=== PATIENT | male | born 1990 | race Caucasian/White ===

== ENCOUNTER 2021-02-22 19:04 | Inpatient (IN) | payer MEDICAID, OTHER ==
[~2021-02-22] VITALS: Ht 177.8 cm; Wt 88.0 kg
[2021-02-22] MEDS ORDERED: IBUPROFEN 600MG TABLET PO STA (20:03)
[2021-02-22] MEDS ORDERED: SODIUM CHLORIDE 0.9% 1,000 ML IV ONE (20:15)
[2021-02-22 20:32] LABS: CHLORIDE 107 mEq/L (98-107)
[2021-02-22 20:34] LABS: BASOPHILS % 0.9 % (0.0-2.0); EOSINOPHILS % 3.7 % (0.0-5.0); HEMATOCRIT. 38.8 % (42.0-52.0); HEMOGLOBIN. 13.1 g/dL (14.0-18.0); LYMPHOCYTES % 14.5 % (20.0-50.0); MEAN CORPUSCULAR HEMOGLOBIN 27.7 pg (28.0-32.0); MEAN CORPUSCULAR VOLUME 82.1 fL (80.0-94.0); MEAN PLATELET VOLUME 8.5 fl (7.4-10.4); MONOCYTES % 6.9 % (2.0-8.0); PLATELET 172 x1000/uL (130-400); RED BLOOD CELL COUNT 4.73 mill/uL (4.7-6.1); RED CELL DISTRIBUTION WIDTH 13.8 % (11.6-14.6)
[2021-02-22] MEDS ORDERED: IOHEXOL-300 100 ML BOTTLE ONE (23:22)
[2021-02-23] MEDS ORDERED: AZITHROMYCIN 500MG/250ML 250 ML IV ONE (00:15)
[2021-02-23] MEDS ORDERED: CEFTRIAXONE 1 G PREMIX 50 ML IV ONE (00:15)
[2021-02-23 20:23] VITALS: BP 120/69
[2021-02-23] MEDS ORDERED: ACETAMINOPHEN 325MG TABLET PO PRN (21:30)
[2021-02-23 22:00] VITALS: BP 120/69
[2021-02-23] MEDS ORDERED: CEFTRIAXONE 1,000 MG in DEXTROSE 5% WATER 50 ML IV SCH (22:00)
[2021-02-23] MEDS ORDERED: AZITHROMYCIN 500 MG in DEXT 5% WATER 250 ML IV SCH (23:00)
[2021-02-23 23:03] LABS: BASOPHILS % 0.8 % (0.0-2.0); EOSINOPHILS % 6.8 % (0.0-5.0); HEMATOCRIT. 39.1 % (42.0-52.0); HEMOGLOBIN. 13.4 g/dL (14.0-18.0); MEAN CORPUSCULAR VOLUME 81.7 fL (80.0-94.0); MONOCYTES % 8.7 % (2.0-8.0); NEUTROPHILS % 60.7 % (40.0-76.0); PLATELET 176 x1000/uL (130-400); RED BLOOD CELL COUNT 4.78 mill/uL (4.7-6.1); RED CELL DISTRIBUTION WIDTH 13.8 % (11.6-14.6)
[2021-02-23] MEDS: QUETIAPINE FUMARATE 50MG TABLET PO SCH (23:04)
[2021-02-23 23:09] LABS: CHLORIDE 105 mEq/L (98-107)
[2021-02-24] VITALS: BP 105/67
[2021-02-24] MEDS ORDERED: LORA-249 MT (01:34)
[2021-02-24] MEDS ORDERED: QUET100T MT (01:34)
[2021-02-24] MEDS ORDERED: BUPR1FIL7 SL (01:34)
[2021-02-24 04:00] VITALS: BP 107/58
[2021-02-24 08:00] VITALS: BP 101/62
[2021-02-24] MEDS: NICOTINE 21MG PATCH TD SCH (09:44)
[2021-02-24 12:00] VITALS: BP 123/65
[2021-02-24] MEDS ORDERED: ACETAMINOPHEN 325MG TABLET PO PRN (12:00)
[2021-02-24] MEDS ORDERED: ONDANSETRON HCL 4MG/2ML INJ IV PRN (12:00)
[2021-02-24] MEDS ORDERED: CLONIDINE 0.1MG TABLET PO PRN (12:00)
[2021-02-24] MEDS ORDERED: HYDROCODONE/ACETAMINOPHEN 5/325MG TABLET PO PRN (12:00)
[2021-02-24] MEDS ORDERED: MAGNESIUM/ALUMINUM HYDROXIDE/SIMETHICONE 30ML UDC PO PRN ×2 (12:00→18:45)
[2021-02-24] MEDS ORDERED: NALOXONE HCL 0.4MG/ML VIAL IV PRN (12:15)
[2021-02-24] MEDS: ENOXAPARIN 40MG/0.4ML SYR SUBCUT SCH (13:05)
[2021-02-24 14:25] LABS: CLARITY URINE CLEAR (CLEAR); COLOR URINE YELLOW (YELLOW); KETONES URINE NEGATIVE (NEGATIVE); LEUKOCYTE ESTERASE URINE NEGATIVE (NEGATIVE); NITRITE URINE NEGATIVE (NEGATIVE); OCCULT BLOOD URINE NEGATIVE (NEGATIVE); PH URINE 5.5 (4.5-8.0); PROTEIN URINE NEGATIVE (NEGATIVE); SPECIFIC GRAVITY URINE 1.022 (1.005-1.030); UROBILINOGEN URINE 0.2 E.U./dL (0.2-1.0)
[2021-02-24 14:57] LABS: *AMPHETAMINES SCREEN URINE PRESUMTIVE POSITIVE (NEGATIVE); *BARBITURATES SCREEN URINE NEGATIVE (NEGATIVE)
[2021-02-24 14:58] LABS: *BENZODIAZEPINES SCREEN URINE NEGATIVE (NEGATIVE); *COCAINE SCREEN URINE NEGATIVE (NEGATIVE); CANNABINOID URINE SCREEN NEGATIVE (NEGATIVE); METHADONE URINE SCREEN NEGATIVE (NEGATIVE); OPIATES URINE SCREEN NEGATIVE (NEGATIVE)
[2021-02-24 14:59] LABS: PHENCYCLIDINE URINE SCREEN NEGATIVE (NEGATIVE)
[2021-02-24 16:00] VITALS: BP 111/65
[2021-02-24] MEDS ORDERED: NICO-789 TP (18:44)
[2021-02-24] MEDS ORDERED: GUAIFENESIN-DM 200MG-20MG/10ML UDC PO PRN (18:45)
[2021-02-24] MEDS ORDERED: TRAZODONE HCL 50MG TABLET PO SCH (18:45)
[2021-02-24] MEDS ORDERED: DOCUSATE SODIUM 100MG CAPSULE PO PRN (18:45)
[2021-02-24] MEDS ORDERED: DIPHENHYDRAMINE 25MG CAPSULE PO PRN (18:45)
[2021-02-24] MEDS ORDERED: BACLOFEN 10MG TABLET PO PRN (18:45)
[2021-02-24] MEDS ORDERED: TUSSL MT (18:51)
[2021-02-24] MEDS ORDERED: DOCU-150 PO (18:51)
[2021-02-24] MEDS ORDERED: TRAZ-251 PO (18:51)
[2021-02-24] MEDS ORDERED: RISP1SOL4 PO (18:51)
[2021-02-24] MEDS ORDERED: MAG355OR21 MT (18:51)
[2021-02-24] MEDS ORDERED: DIPH25CA83 PO (18:51)
[2021-02-24] MEDS ORDERED: BACL-141 PO (18:51)
[2021-02-24] MEDS ORDERED: HYDR50SY PO (18:51)
[2021-02-24] MEDS ORDERED: TRAZODONE HCL 50MG TABLET PO PRN (19:15)
[2021-02-24] MEDS ORDERED: HYDROXYZINE 25MG TABLET PO PRN (19:15)
[2021-02-24 20:00] VITALS: BP 109/60
[2021-02-24] MEDS: CEFTRIAXONE 1,000 MG in DEXTROSE 5% WATER 50 ML IV SCH (20:18)
[2021-02-24] MEDS: QUETIAPINE FUMARATE 50MG TABLET PO SCH (20:18)
[2021-02-24] MEDS: AZITHROMYCIN 500 MG in DEXT 5% WATER 250 ML IV SCH (20:19)
[2021-02-24] MEDS: RISPERIDONE 1MG TABLET PO SCH (20:19)
[2021-02-25 08:00] VITALS: BP 110/64
[2021-02-25] MEDS: NICOTINE 21MG PATCH TD SCH (08:47)
[2021-02-25] MEDS: RISPERIDONE 1MG TABLET PO SCH ×2 (08:47→20:33)
[2021-02-25 12:00] VITALS: BP 111/64
[2021-02-25] MEDS: ENOXAPARIN 40MG/0.4ML SYR SUBCUT SCH (12:38)
[2021-02-25 15:11] LABS: BASOPHILS % 0.8 % (0.0-2.0); EOSINOPHILS % 5.9 % (0.0-5.0); HEMATOCRIT. 42.8 % (42.0-52.0); HEMOGLOBIN. 14.6 g/dL (14.0-18.0); LYMPHOCYTES % 16.5 % (20.0-50.0); MEAN CORPUSCULAR HEMOGLOBIN 27.8 pg (28.0-32.0); MEAN CORPUSCULAR VOLUME 81.5 fL (80.0-94.0); MEAN PLATELET VOLUME 8.2 fl (7.4-10.4); MONOCYTES % 7.8 % (2.0-8.0); PLATELET 209 x1000/uL (130-400); RED BLOOD CELL COUNT 5.25 mill/uL (4.7-6.1); RED CELL DISTRIBUTION WIDTH 13.5 % (11.6-14.6)
[2021-02-25 15:31] LABS: CHLORIDE 103 mEq/L (98-107)
[2021-02-25 15:37] LABS: PHOSPHORUS 4.9 mg/dL (2.5-4.9)
[2021-02-25 15:38] LABS: LDL CHOLESTEROL 79 mg/dL (5-100)
[2021-02-25 15:39] LABS: HDL CHOLESTEROL 40 mg/dL (40-59)
[2021-02-25 16:00] VITALS: BP 110/58
[2021-02-25 20:00] VITALS: BP 117/79
[2021-02-25] MEDS: CEFTRIAXONE 1,000 MG in DEXTROSE 5% WATER 50 ML IV SCH ×2 (20:00→20:33)
[2021-02-25] MEDS: QUETIAPINE FUMARATE 50MG TABLET PO SCH (20:33)
[2021-02-25] MEDS: AZITHROMYCIN 500 MG in DEXT 5% WATER 250 ML IV SCH ×2 (20:34→20:54)
[2021-02-26] VITALS: BP 118/64
[2021-02-26 04:00] VITALS: BP 116/59
[2021-02-26 08:00] VITALS: BP 107/66
[2021-02-26] MEDS: NICOTINE 21MG PATCH TD SCH (10:10)
[2021-02-26] MEDS: RISPERIDONE 1MG TABLET PO SCH ×2 (10:10→21:08)
[2021-02-26 12:00] VITALS: BP 111/65
[2021-02-26] MEDS: ENOXAPARIN 40MG/0.4ML SYR SUBCUT SCH (12:00)
[2021-02-26 16:00] VITALS: BP 125/68
[2021-02-26 20:00] VITALS: BP 133/84
[2021-02-26] MEDS: CEFTRIAXONE 1,000 MG in DEXTROSE 5% WATER 50 ML IV SCH (20:00)
[2021-02-26] MEDS: AZITHROMYCIN 500 MG in DEXT 5% WATER 250 ML IV SCH (21:00)
[2021-02-26] MEDS: QUETIAPINE FUMARATE 50MG TABLET PO SCH (21:08)
[2021-02-27] VITALS: BP 120/80
[2021-02-27 04:00] VITALS: BP 123/71
[2021-02-27 08:00] VITALS: BP 127/80
[2021-02-27] MEDS: RISPERIDONE 1MG TABLET PO SCH ×2 (09:24→21:00)
[2021-02-27] MEDS: NICOTINE 21MG PATCH TD SCH (09:32)
[2021-02-27 12:00] VITALS: BP 121/71
[2021-02-27] MEDS: ENOXAPARIN 40MG/0.4ML SYR SUBCUT SCH (12:00)
[2021-02-27 16:00] VITALS: BP 117/62
[2021-02-27 20:00] VITALS: BP 130/82
[2021-02-27] MEDS: CEFTRIAXONE 1,000 MG in DEXTROSE 5% WATER 50 ML IV SCH (20:00)
[2021-02-27] MEDS: AZITHROMYCIN 500 MG in DEXT 5% WATER 250 ML IV SCH (21:00)
[2021-02-27] MEDS: QUETIAPINE FUMARATE 50MG TABLET PO SCH (21:00)
[2021-02-28] VITALS: BP 134/77
[2021-02-28 04:31] VITALS: BP 123/70
[2021-02-28 08:00] VITALS: BP 126/77
[2021-02-28] MEDS: NICOTINE 21MG PATCH TD SCH ×2 (08:54→09:11)
[2021-02-28] MEDS: RISPERIDONE 1MG TABLET PO SCH (08:54)
[2021-02-28 11:50] VITALS: BP 126/77
== END 2021-02-28 12:15 | disposition home or self-care (01) | DRG 203 ==
LOC: ER 19:04 → ENRESERV 02-23 14:48 → 7EST 02-23 20:11
PROVIDERS: ADMIT Internal Medicine; ATTEND Internal Medicine
DX: M94.0 Chondrocostal junction syndrome [Tietze] (principal); J18.9 Pneumonia, unspecified organism; F15.10 Other stimulant abuse, uncomplicated; I45.10 Unspecified right bundle-branch block; J44.0 Chronic obstructive pulmonary disease with (acute) lower respiratory infection; F20.9 Schizophrenia, unspecified; F17.210 Nicotine dependence, cigarettes, uncomplicated; Z20.822 Contact with and (suspected) exposure to COVID-19; F41.9 Anxiety disorder, unspecified; F31.9 Bipolar disorder, unspecified; F90.9 Attention-deficit hyperactivity disorder, unspecified type; Z59.00 Homelessness unspecified; Z71.6 Tobacco abuse counseling
CPT/HCPCS: 36415; 71045; 71275; 80048; 80053; 80061; 80076; 80305; 81003; 83735; 84100; 84439; 84443; 84484; 85025; 85379; 87426; 93005; 93306; 93970; 96361; 99291; J0456; J0696; J1650; J7030; J7040; J7060; Q9967